=== PATIENT | female | born 1955 | race African-American/Black ===

== ENCOUNTER 2022-12-01 18:53 | Emergency (ER) | payer BC, MEDICARE ==
[~2022-12-01] VITALS: Ht 165.1 cm; Wt 136.0 kg
[2022-12-01 19:17] VITALS: O2SAT 99
[2022-12-01] MEDS ORDERED: KETOROLAC 60MG/2ML VIAL IM ONE (20:00)
[2022-12-01] MEDS ORDERED: NAPR-1176 MT (20:16)
[2022-12-01] MEDS ORDERED: KETOROLAC 60MG/2ML VIAL IM NR (21:45)
[2022-12-01 22:20] VITALS: BP 183/94; PULSE 84; RESP 18; TEMP 98.7
== END 2022-12-01 22:30 | disposition home or self-care (01) ==
LOC: ER 18:53
DX: S52.121A Displaced fracture of head of right radius, initial encounter for closed fracture (principal); W10.9XXA Fall (on) (from) unspecified stairs and steps, initial encounter; Y93.89 Activity, other specified; Y92.89 Other specified places as the place of occurrence of the external cause; Y99.8 Other external cause status
CPT/HCPCS: 73030; 73060; 73080; 73120; 96372; 99284; J1885; Z7610 ×2